=== PATIENT | female | born 1990 | race Caucasian/White ===

== ENCOUNTER 2019-01-14 20:36 | Emergency (ER) | payer MEDICAID, OTHER ==
[~2019-01-14] VITALS: Ht 157.5 cm; Wt 44.8 kg
[~2019-01-14 20:36] MED LIST: FAMO-1 PO; MACROBID PO; PANT40TA39 PO
[2019-01-14 20:55] VITALS: BP 122/80
[2019-01-14 21:49] LABS: CLARITY,URINE SLIGHTLY CLOUDY (Clear); COLOR,URINE YELLOW (Yellow); GLUCOSE, URINE NEGATIVE (Neg); KETONES,URINE NEGATIVE (Neg); LEUKOCYTE ESTERASE ,URINE LARGE (Neg); NITRITES, URINE NEGATIVE (Neg); OCCULT BLOOD,URINE SMALL (Neg); PROTEIN,URINE NEGATIVE (Neg); UROBILINOGEN,URINE 0.2 E.U/dL (0.2-1.0)
[2019-01-14 21:50] LABS: URINE HCG NEGATIVE (NEG)
[2019-01-14 21:55] LABS: ALANINE AMINOTRANSFERASE 22 U/L (12-78); ALBUMIN 3.5 G/DL (3.4-5.0); ALKALINE PHOSPHATASE 81 IU/L (46-116); ANION GAP 4 (8-16); ASPARTATE AMINO TRANSFERASE 18 U/L (10-37); BILIRUBIN,TOTAL 0.3 MG/DL (0.1-1.0); BLOOD UREA NITROGEN 14 MG/DL (7-18); BUN/CREATININE RATIO 15.9 (6.6-38.0); CALCIUM 8.4 MG/DL (8.5-10.1); CHLORIDE 104 MMOL/L (99-107); CREATININE 0.88 MG/DL (0.40-0.90); GLUCOSE 83 MG/DL (70-104); LIPASE 187 U/L (73-393); POTASSIUM 3.9 MMOL/L (3.5-5.1); SODIUM 138 MMOL/L (135-145); TOTAL CARBON DIOXIDE 30.2 MMOL/L (24-32); TOTAL PROTEIN 6.9 G/DL (6.4-8.2); eGFR 77 ML/MIN
[2019-01-14 21:55] LABS: UA COLLECTION TYPE CLN CATCH MIDSTREAM
[2019-01-14 21:56] LABS: BASOPHILS % (AUTO) 0.3 % (0-1); EOSINOPHILS # (AUTO) 0.1 X10'3 (0-0.9); EOSINOPHILS % (AUTO) 1.2 % (0-6); HEMATOCRIT 41.2 % (35.0-45.0); LYMPHOCYTES # (AUTO) 2.1 X10'3 (1.1-4.8); LYMPHOCYTES % (AUTO) 19.5 % (21-51); MEAN CORPUSCULAR HEMOGLOBIN 31.1 PG (27.0-31.0); MEAN CORPUSCULAR VOLUME 91.6 FL (78-98); MEAN PLATELET VOLUME 8.7 FL (7.4-10.4); MONOCYTES # (AUTO) 0.7 X10'3 (0-0.9); NEUTROPHILS # (AUTO) 7.6 X10'3 (1.8-7.7); PLATELET COUNT 257 X10'3 (140-440); RED BLOOD COUNT 4.49 X10'6 (4.20-5.60); RED CELL DISTRIBUTION WIDTH 12.5 % (11.5-14.5); WHITE BLOOD COUNT 10.6 X10'3 (4.5-11.0)
[2019-01-14 21:57] LABS: BACTERIA,URINE 4+ /HPF (Neg); RBC,URINE NONE SEEN /HPF (0-2); WBC CLUMPS,URINE MANY /HPF (NEGATIVE); WBC,URINE 20-30 /HPF (0-4)
[2019-01-14 21:58] LABS: SQUAMOUS EPITHELIAL CELL,UR MODERATE /LPF (FEW)
[2019-01-14 22:00] LABS: INR 1.1 INR; PROTHROMBIN TIME 10.9 SECONDS (9.0-12.0)
--- NOTE | 2019-01-14 22:12 | NUR ---
DR EDUARDO ATTEMPTING TO SPEAK WITH PT, PT NOT IN ROOM AND DID NOT TELL STAFF THAT SHE WAS LEAVING.
== END 2019-01-14 22:30 | disposition left against medical advice (07) ==
LOC: ER 20:36
DX: R10.84 Generalized abdominal pain (principal); R10.30 Lower abdominal pain, unspecified; F12.90 Cannabis use, unspecified, uncomplicated; F15.90 Other stimulant use, unspecified, uncomplicated; Z79.899 Other long term (current) drug therapy
CPT/HCPCS: 36415; 80053; 81001; 81025; 83690; 85025; 85610; 87077; 87088; 87186; 99283

== ENCOUNTER 2025-08-09 15:44 | Outpatient (CLI) | payer MEDICAID ==
--- NOTE | 2025-08-09 17:44 | RADIOLOGY REPORT ---
PROCEDURE: MR MRI HEAD Indication: FREQUENT HEADACHES COMPARISON: None TECHNIQUE: Multiplanar multisequence images of the brain are obtained without contrast. Patient declined the contrast-enhanced portion of this examination. FINDINGS: There is no abnormal diffusion restriction. There is no intracranial hemorrhage. No extra-axial fluid collection, mass effect or midline shift. The ventricles are midline and normal in size. The cisterns are patent. Normal intracranial flow voids are preserved. No abnormal susceptibility signal. Mastoids well pneumatized. There is extensive left maxillary sinus mucosal thickening The visualized orbits are unremarkable. IMPRESSION: Please note that patient declined the contrast-enhanced portion of this examination. No acute cerebrovascular ischemia. Extensive left maxillary sinus disease.
== END 2025-08-09 23:59 | disposition home or self-care (01) ==
LOC: MRI 15:44
PROVIDERS: ATTEND Physician Assistant
DX: J32.0 Chronic maxillary sinusitis (principal); R51.9 Headache, unspecified
CPT/HCPCS: 70551